=== PATIENT | female | born 1940 | race Caucasian/White ===

== ENCOUNTER 2020-06-20 15:55 | Observation (INO) | payer MEDICARE ==
[~2020-06-20] VITALS: Ht 162.6 cm; Wt 76.5 kg
[2020-06-20 17:35] LABS: BASOPHILS % (AUTO) 1 % (0-1); EOSINOPHILS % (AUTO) 6 % (1-7); LYMPHOCYTES % (AUTO) 19 % (22-44); MEAN CORPUSCULAR HGB CONC 32.2 g/dL (32.4-35.8); MEAN PLATELET VOLUME 9.5 fL (7.4-10.4); MONOCYTES % (AUTO) 8 % (2-9); NEUTROPHILS % (AUTO) 67 % (42-75); PLATELET COUNT 204 x10^3/uL (130-400); RED BLOOD COUNT 4.92 x10^6/uL (3.82-5.3)
[2020-06-20 17:36] LABS: MD NO
[2020-06-20 17:44] LABS: ALBUMIN 3.6 g/dL (3.4-5.0); ANION GAP 4 mmol/L (5-15); CALCIUM 8.5 mg/dL (8.5-10.1); CHLORIDE 109 mmol/L (98-107); CREATININE 0.94 mg/dL (0.55-1.02)
[2020-06-20 17:49] LABS: TROPONIN I < 0.015 ng/mL (0.000-0.045)
[2020-06-20] MEDS ORDERED: ENALAPRILAT 1.25 MG/ML, 1ML ONE (17:57)
[2020-06-20] MEDS ORDERED: ACETAMINOPHEN 325 MG TABLET ONE (17:58)
[2020-06-20] MEDS ORDERED: ACETAMINOPHEN 325 MG TABLET PO ONE (18:00)
[2020-06-20] MEDS ORDERED: ENALAPRILAT 1.25 MG/ML, 2ML IV ONE (18:00)
--- NOTE | 2020-06-20 18:04 | NUR ---
PT ENDORSED TO BREAK ELAINE HERNANDEZ. VASOTEC AND TYLENOL GIVEN TO ELAINE FOR ADMINISTRATION
--- NOTE | 2020-06-20 18:25 | NUR ---
PT TO CT
--- NOTE | 2020-06-20 18:51 | NUR ---
PT REPORT FROM DAVID HENRY. PT CARE TO BE ASSUMED.
--- NOTE | 2020-06-20 18:56 | NUR ---
PT RESTING QUIETLY ON GURNEY. BEAR WARMER PROVIDED. PT REPORTS IMPROVMENT IN MEDEIROS PAIN. "I FEEL VERY RELAXED". PT'S DAUGHTER IN ROOM
[2020-06-20 18:59] LABS: MICROSCOPIC AUTO
[2020-06-20] MEDS ORDERED: MULT-790 PO (19:04)
[2020-06-20] MEDS ORDERED: BENA10TA59 PO (19:04)
[2020-06-20] MEDS ORDERED: OMEP-110 PO (19:04)
[2020-06-20] MEDS ORDERED: IBUP200T64 PO (19:04)
--- NOTE | 2020-06-20 19:12 | NUR ---
ADMITTING PHYSICIAN AT BS. QUINN DELIVERED TO PT.
[2020-06-20 19:31] LABS: HCT (SEDRATE) 42.8 % (34.6-47.8)
[2020-06-20] MEDS ORDERED: ACETAMINOPHEN 325 MG TABLET PO PRN (20:30)
[2020-06-20] MEDS ORDERED: LORazepam 0.5MG TABLET PO PRN (20:30)
[2020-06-20] MEDS ORDERED: IBUPROFEN 600 MG TABLET PO PRN (20:30)
[2020-06-20] MEDS ORDERED: ENALAPRILAT 1.25 MG/ML, 2ML IVPush PRN (20:30)
[2020-06-20] MEDS ORDERED: HEPARIN 5,000 UNITS/ML, 1ML ONE (20:42)
[2020-06-20] MEDS: HEPARIN 5,000 UNITS/ML, 1ML SQ SCH (20:52)
--- NOTE | 2020-06-20 20:52 | NUR ---
HEPARIN GIVEN PER EMAR. PT RESTING COMFORTABLY ON GURNEY AWAITING ADMISSION. DAUGHTER IN ROOM.
[2020-06-20] MEDS ORDERED: ENALAPRIL MC SCH (21:00)
[2020-06-20] MEDS ORDERED: FOSFOMYCIN 3 GM PACKET PO ONE ×2 (21:30→23:30)
--- NOTE | 2020-06-20 21:56 | NUR ---
PT REPORT TO DAVID KERR FOR ROOM [phone]
[2020-06-20 22:48] VITALS: BP 174/84
[2020-06-20] MEDS ORDERED: ENALAPRILAT 1.25 MG/ML, 1ML IVPush PRN (23:30)
[2020-06-21 00:07] VITALS: BP 153/85
[2020-06-21] MEDS: HEPARIN 5,000 UNITS/ML, 1ML SQ SCH ×2 (05:15→14:24)
[2020-06-21 05:18] VITALS: BP 155/85
[2020-06-21 05:56] LABS: ANION GAP 5 mmol/L (5-15); CALCIUM 8.4 mg/dL (8.5-10.1); CHLORIDE 112 mmol/L (98-107); CREATININE 0.64 mg/dL (0.55-1.02)
[2020-06-21] MEDS ORDERED: FLU VACC QS2020-21(6MOS UP)/PF 60MCG/0.5 ML SYR IM ONE (06:30)
[2020-06-21 07:08] VITALS: BP 152/81
[2020-06-21] MEDS ORDERED: BENAZEPRIL 10 MG TABLET PO SCH (09:00)
[2020-06-21] MEDS ORDERED: OMEPRAZOLE 20 MG CAPSULE.DR PO SCH (09:00)
[2020-06-21 10:00] VITALS: BP 128/81
[2020-06-21 14:19] VITALS: BP 146/84
== END 2020-06-22 01:57 | disposition home or self-care (01) ==
LOC: ED 19:59 → EDIP 20:09 → 5SO 22:28
PROVIDERS: ADMIT Family Medicine; ATTEND Family Medicine
DX: I16.0 Hypertensive urgency (principal); I10 Essential (primary) hypertension; F41.9 Anxiety disorder, unspecified; R55 Syncope and collapse; L29.2 Pruritus vulvae; E78.5 Hyperlipidemia, unspecified; N30.90 Cystitis, unspecified without hematuria; Z79.899 Other long term (current) drug therapy; Z23 Encounter for immunization
CPT/HCPCS: 36415; 70450; 71045; 80048; 81001; 82040; 83880; 84484; 85025; 85651; 86140; 90686; 93005; 93306; 93356; 96372; 96374; 99285; G0008; G0378; J1644